=== PATIENT | female | born 1960 | race Caucasian/White ===

== ENCOUNTER → 2017-01-06 | Outpatient (CLI) | payer OTHER ==
[~2017-01-06] MED LIST: BUPR100T6 PO; CALC-197 PO; CELE200C PO; CHOL2000 PO; CYCL-259 PO; ESCI10TA10 PO; FELODIPINE PO; HYDR-3240 PO; IRBE150T49 PO; IRBE300T16 PO; LORA10TA75 PO; OXYC-302 PO; OXYC1TAB7 PO; RANITIDINE PO; SIMV20TA3 PO; SYNTHROID PO; UBID1CAP24 PO
== END | disposition home or self-care (01) ==
LOC: CFH 15:28 → EDSTATUS 15:30
PROVIDERS: ATTEND Internal Medicine Geriatric Medicine
DX: Z12.31 Encounter for screening mammogram for malignant neoplasm of breast (principal)
CPT/HCPCS: G0202

== ENCOUNTER 2017-05-22 17:42 | Emergency (ER) | payer OTHER ==
[~2017-05-22] VITALS: Ht 165.1 cm; Wt 76.2 kg
[~2017-05-22 17:42] MED LIST changes: -UBID1CAP24 PO; +UBID1CAP43 PO
[2017-05-22] MEDS ORDERED: SODIUM CHLORIDE 0.9% 1,000ML IVBOLUS ONE (18:30)
[2017-05-22] MEDS ORDERED: SODIUM CHLORIDE FLUSH 10ML SYR IVF ONE (18:30)
[2017-05-22 18:44] LABS: HEMATOCRIT 44.4 % (34.6-47.8); HEMOGLOBIN 15.1 g/dL (11.7-16.4)
[2017-05-22 18:49] LABS: RAPID INFLUENZA A Negative (Negative); RAPID INFLUENZA B Negative (Negative)
[2017-05-22 18:57] LABS: BLOOD UREA NITROGEN 17 mg/dL (7-18)
[2017-05-22] MEDS ORDERED: PROCHLORPERAZINE 5 MG/ML, 2ML IVPush ONE (19:00)
[2017-05-22] MEDS ORDERED: DIPHENHYDRAMINE 50 MG/ML, 1ML IVPush ONE (19:00)
[2017-05-22] MEDS ORDERED: KETOROLAC 30 MG/1 ML IVPush ONE (19:00)
[2017-05-22 19:09] LABS: ASPARTATE AMINO TRANSFERASE 24 U/L (15-37)
[2017-05-22] MEDS ORDERED: KETOROLAC 30 MG/1 ML ONE (19:36)
[2017-05-22] MEDS ORDERED: DIPHENHYDRAMINE 50 MG/ML, 1ML ONE (19:36)
[2017-05-22] MEDS ORDERED: PROCHLORPERAZINE 5 MG/ML, 2ML ONE (19:36)
[2017-05-22 20:15] VITALS: BP 129/76
== END 2017-05-22 20:23 | disposition home or self-care (01) ==
LOC: ED 20:00
DX: B34.9 Viral infection, unspecified (principal); R05 Cough; R51 Headache; I10 Essential (primary) hypertension; Z90.49 Acquired absence of other specified parts of digestive tract; Z88.2 Allergy status to sulfonamides; Z88.8 Allergy status to other drugs, medicaments and biological substances; Z88.1 Allergy status to other antibiotic agents
CPT/HCPCS: 36415; 70450; 71010; 80053; 85025; 87400; 96374; 96375; 99285; J0780; J1200; J1885; J7030

== ENCOUNTER → 2019-04-23 | Outpatient (CLI) | payer BC, OTHER | END | disposition home or self-care (01) | LOC: CFH 14:19 | PROVIDERS: ATTEND Internal Medicine Geriatric Medicine | DX: Z12.31 Encounter for screening mammogram for malignant neoplasm of breast (principal); N64.89 Other specified disorders of breast; I10 Essential (primary) hypertension; E78.2 Mixed hyperlipidemia; E78.5 Hyperlipidemia, unspecified; Z88.8 Allergy status to other drugs, medicaments and biological substances; Z88.1 Allergy status to other antibiotic agents | CPT/HCPCS: 75571; 77063; 77067 ==

== ENCOUNTER → 2020-10-31 | Outpatient (CLI) | payer BC, OTHER ==
[~2020-10-31] MED LIST changes: -CYCL-259 PO; +CYCL10TA2 PO; +HYDR-2214 PO; -HYDR-3240 PO; -IRBE300T16 PO; +IRBE300T8 PO; -OXYC-302 PO; +OXYC1TAB14 PO; +SIMV20TA19 PO; -SIMV20TA3 PO
== END | disposition home or self-care (01) ==
LOC: CFH 11:01
PROVIDERS: ATTEND Internal Medicine Geriatric Medicine
DX: Z12.31 Encounter for screening mammogram for malignant neoplasm of breast (principal)
CPT/HCPCS: 77063; 77067